=== PATIENT | male | born 1945 | race Caucasian/White ===

== ENCOUNTER → 2024-06-19 07:28 | Outpatient (REF) | payer OTHER, SELFPAY | LOC: EMG 07:28 | PROVIDERS: ATTENDING PHYSICIAN Physical Medicine & Rehabilitation; FAMILY PHYSICIAN Nurse Practitioner Adult Health | DX: R20.0 Anesthesia of skin (principal); M25.512 Pain in left shoulder | CPT/HCPCS: 95886; 95909 ==

== ENCOUNTER → 2024-08-03 06:12 | Outpatient (REF) | payer OTHER, SELFPAY | LOC: MRI 3T 06:12 | PROVIDERS: ATTENDING PHYSICIAN Orthopaedic Surgery; FAMILY PHYSICIAN Nurse Practitioner Family | DX: M54.12 Radiculopathy, cervical region (principal); M25.511 Pain in right shoulder | CPT/HCPCS: 72141; 73221 ==